=== PATIENT | female | born 1945 | race Caucasian/White ===

== ENCOUNTER 2018-06-20 01:10 | Inpatient (IN) | payer OTHER ==
[~2018-06-20] VITALS: Ht 157.5 cm; Wt 62.1 kg
--- NOTE | 2018-06-20 01:17 | NUR ---
PT TAKEN TO BED 7
[2018-06-20 01:27] VITALS: BP 137/72
--- NOTE | 2018-06-20 01:33 | NUR ---
PT TO ED WITH C/O HEMATURIA AND URINARY URGENCY. PT DENIES ANY OTHER SMYPTOMS. DENIES N/V. REPORTS BEING SEEN IN URGENT CARE GIVEN RX FOR CIPRO. PT PLACED INTO BED, PENDING MD MOCK. PMH--DENIES RX--DENIES
--- NOTE | 2018-06-20 01:40 | NUR ---
# 14 FR Urinary catheter inserted utilizing sterile technique. Immediate return of 40 ml RED urine noted. Urine sample collected and sent to lab. Pt tolerated procedure WELL.
[2018-06-20 02:18] LABS: APPEARANCE,URINE TURBID (CLEAR); BILIRUBIN,URINE NEGATIVE (NEGATIVE); BLOOD, URINE 3+ (NEGATIVE); COLOR,URINE RED (YELLOW); LEUKOCYTE ESTERASE ,URINE NEGATIVE (NEGATIVE); NITRITE, URINE NEGATIVE (NEGATIVE); PH,URINE 6.5 (5.0-9.0); UGLUCOSE NEGATIVE (NEGATIVE)
[2018-06-20 02:20] LABS: RBC,URINE TOO NUMEROUS TO COUN /HPF (0-5); WBC,URINE 0-5 (RARE) /HPF (0-5)
[2018-06-20 03:23] LABS: BASOPHILS % (AUTO) 0.4 % (0.0-2.0); EOSINOPHILS # (AUTO) 0.1 K/uL (0-0.4); EOSINOPHILS % (AUTO) 0.8 % (0.0-4.0); HEMATOCRIT 40.6 % (36-48); HEMOGLOBIN 13.3 g/dL (12.0-16.0); LYMPHOCYTES # (AUTO) 2.4 K/uL (2.5-16.5); LYMPHOCYTES % (AUTO) 21.7 % (20.5-51.1); MEAN CORPUSCULAR HEMOGLOBIN 28 pg (27-31); MEAN CORPUSCULAR HGB CONC 33 g/dL (33-37); MEAN CORPUSCULAR VOLUME 84.9 fL (80-94); MONOCYTES # (AUTO) 0.8 K/uL (0.8-1.0); MONOCYTES % (AUTO) 6.7 % (1.7-9.3); NEUTROPHILS # (AUTO) 7.9 K/uL (1.8-7.7); NEUTROPHILS % (AUTO) 70.4 % (42.2-75.2); PLATELET COUNT (AUTO) 206 K/uL (140-450); RED BLOOD CELL COUNT(AUTO) 4.78 MIL/uL (4.20-5.40); RED CELL DISTRIBUTION WIDTH 14.6 % (11.6-13.7); WHITE BLOOD COUNT (AUTO) 11.3 K/uL (4.8-10.8)
--- NOTE | 2018-06-20 03:26 | NUR ---
Dr. Morrison evaluating patient at bedside.
[2018-06-20 03:32] LABS: ANION GAP 9.8 (8-16); CARBON DIOXIDE 25.8 mmol/L (21-32); CREATININE 0.7 mg/dL (0.6-1.3); POTASSIUM 3.6 mmol/L (3.5-5.1)
[2018-06-20 03:38] LABS: ALBUMIN 3.4 g/dL (3.4-5.0); TOTAL BILIRUBIN 0.4 mg/dL (0.0-1.0)
[2018-06-20] MEDS ORDERED: NACL 0.9% 1,000 ML IV ONE (04:20)
[2018-06-20] MEDS ORDERED: NACL 0.9% 1,000 ML IV SCH (04:25)
[2018-06-20] MEDS ORDERED: DOCUSATE SODIUM 100 MG GELCAP PO PRN (04:25)
[2018-06-20] MEDS ORDERED: ONDANSETRON 4 MG/2 ML VIAL IM/IVP PRN (04:25)
[2018-06-20] MEDS ORDERED: ACETAMINOPHEN 325 MG TAB PO PRN (04:25)
[2018-06-20] MEDS ORDERED: MORPHINE SULFATE 2 MG/ML SYR IVP PRN (04:25)
--- NOTE | 2018-06-20 04:40 | NUR ---
Patient will be admitted to care of DR BRAXTON. Admited to MED/SURG. Will go to room 111-A. Belongings list completed. Report to MONCHO MCKEON.
[2018-06-20 04:45] VITALS: BP 140/75
--- NOTE | 2018-06-20 04:45 | NUR ---
REPORT RECEIVED FROM ED NURSE AT BEDSIDE. PT IN STABLE CONDITION. AAOX4. INTRODUCED SELF TO PT. BOARD UPDATED. NO COMPLAINTS OF PAIN. NO SOB. AFEBRILE. IV SITE L AC 18G RUNNING D5 1/2NS@60ML/HR PATENT AND INTACT. SKIN WARM, DRY, AND INTACT WITH NO OPEN WOUNDS. BED LOCKED IN LOW POSITION. CALL BRISENO WITHIN REACH. SAFETY PRECAUTIONS IN PLACE.
[2018-06-20 04:57] LABS: CHOL/HDL RATIO 3.8 (1-4.5); MAGNESIUM 2.2 mg/dL (1.8-2.4); PHOSPHORUS 4.2 mg/dL (2.5-4.9); THYROID STIMULATING HORMONE 4.2 uIU/mL (0.34-3.74)
[2018-06-20 05:00] LABS: BARBITURATE, URINE NEG. ng/ml (NEG <=200); BENZODIAZEPINE, URINE NEG. ng/mL (NEG <=200); CANNABINOID, URINE NEG. ng/mL (NEG <=50); COCAINE, URINE NEG. ng/mL (NEG <=300); OPIATE, URINE NEG. ng/mL (NEG <=2000); PHENCYCLIDINE SCREEN,URINE NEG. ng/mL (NEG <=25)
[2018-06-20] MEDS ORDERED: DEXT 5% / NACL 0.45% 1,000 ML IV SCH (05:20)
[2018-06-20] MEDS ORDERED: cefTRIAXone 1,000 MG VIAL ONE (05:41)
--- NOTE | 2018-06-20 05:43 | NUR ---
CHAO BROOKE AND RUNNING. PT TOLERATING WELL.
--- NOTE | 2018-06-20 07:30 | NUR ---
REPORT GIVEN TO AM NURSE AT BEDSIDE. PT IN STABLE CONDITION.
--- NOTE | 2018-06-20 07:31 | NUR ---
RECEIVED BEDSIDE REPORT FROM MONCHO MCKEON. PT STABLE, SLEEPING, BUT EASILY AROUSABLE. NO SIGNS OF DISTRESS NOTED. NO REDNESS, SWELLING, OR INFLAMMATION NOTED ON IV SITE. BED IN LOW POSITION. CALL LIGHT WITHIN REACH. SAFETY MEASURES IN PLACE. PLAN OF CARE REVIEWED.
[2018-06-20 08:00] VITALS: BP 117/61
--- NOTE | 2018-06-20 08:18 | NUR ---
PATIENT HAS BEEN SCREENED AND CATEGORIZED HIGH NUTRITION RISK. PATIENT WILL BE SEEN WITHIN 1-2 DAYS OF ADMISSION. 06/20/18-06/21/[address]
[2018-06-20] MEDS: LACTOBACILLUS RHAMNOSUS GG 1 EACH CAP PO SCH (09:56)
[2018-06-20] MEDS: NACL 0.9% 1,000 ML IV SCH (09:56)
--- NOTE | 2018-06-20 09:59 | NUR ---
ADMINISTERED SCHEDULED MEDICATIONS. PT TOLERATED WELL. NO OTHER NEEDS AT THIS TIME.
--- NOTE | 2018-06-20 11:15 | NUR ---
PT STABLE, AWAKE, AND ALERT. AMBULATES TO THE BATHROOM. NO OTHER NEEDS AT THIS TIME.
--- NOTE | 2018-06-20 13:04 | NUR ---
INSERTED 3 WAY WARNER CATHETER WITH BLADDER IRRIGATION PER MD ORDER.
[2018-06-20 16:00] VITALS: BP 111/51
--- NOTE | 2018-06-20 16:00 | NUR ---
PT TOLERATING 3-WAY WARNER CATHETER WELL. NO OTHER NEEDS AT THIS TIME. FAMILY AT THE BEDSIDE.
--- NOTE | 2018-06-20 18:00 | NUR ---
TOTAL INPUT FROM BLADDER IRRIGATION IS 18,000 ML OF SODIUM CHLORIDE, TOTAL OUTPUT IS 16,525. PINK DRAINAGE FROM WARNER CATHETER LAST NOTED.
--- NOTE | 2018-06-20 19:15 | NUR ---
ENDORSED PT TO MONCHO MCKEON FOR CONTINUITY OF CARE. PT STABLE, AWAKE, AND ALERT.
--- NOTE | 2018-06-20 19:16 | NUR ---
REPORT RECEIVED FROM AM NURSE AT BEDSIDE. PT IN STABLE CONDITION. AAOX4. INTRODUCED SELF TO PT. BOARD UPDATED. NO COMPLAINTS OF PAIN. NO SOB. AFEBRILE. IV SITE R AC 18 RUNNING NS@60ML/HR PATENT AND INTACT. SKIN WARM, DRY, AND INTACT WITH NO OPEN WOUNDS. BED LOCKED IN LOW POSITION. CALL BRISENO WITHIN REACH. SAFETY PRECAUTIONS IN PLACE.
[2018-06-20] MEDS: ATORVASTATIN 20 MG TAB PO SCH (20:33)
--- NOTE | 2018-06-20 20:33 | NUR ---
LIPITOR GIVEN PO. PT TOLERATED WELL.
--- NOTE | 2018-06-20 21:35 | NUR ---
PATIENT HAS NS IRRIGATING HER BLADDER THROUGH A TRIPLE LUMEN WARNER. HAS COMPLAINTS OF PAIN WHEN THERE IS A BLOCKAGE. IRRIGATED BLADDER WITH 10ML WHEN BLOCKAGE OCCURRED 6 TIMES TO ALLOW NORMAL FLOW OF THE WARNER.
--- NOTE | 2018-06-20 23:15 | NUR ---
MD TO SEE PATIENT. IRRIGATION RUNNING CLEAR PINK. MD ORDERED TO TURN OFF IRRIGATION.
[2018-06-21] VITALS: BP 98/55
--- NOTE | 2018-06-21 00:30 | NUR ---
WARNER DRAINING DARK RED URINE. NOTIFIED. ORDERED TO START BLADDER IRRIGATION AGAIN.
[2018-06-21] MEDS: NACL 0.9% 1,000 ML IV SCH ×2 (01:57→18:31)
--- NOTE | 2018-06-21 02:10 | NUR ---
PT HAS NO COMPLAINTS OF PAIN DUE TO BLADDER DISTENTION. WARNER DRAINING PINK TINGED URINE. WILL CONTINUE TO MONITOR.
--- NOTE | 2018-06-21 03:35 | NUR ---
PT ATTEMPTING TO SLEEP BUT HAS PAIN WHEN BLADDER BECOMES EXTENDED DUE TO IRRIGATION. NO MAJOR S/S OF DISTRESS NOTED. WILL CONTINUE TO MONITOR.
--- NOTE | 2018-06-21 04:15 | NUR ---
CALLED MINESWEEPING OFFICER FOR IRRIGATION BAG. CLERICAL AIDE SAID SHE WAS BUSY IN ICU AND TELL CHARGE TO GET IT.
--- NOTE | 2018-06-21 04:20 | NUR ---
IRRIGATION BAG RECEIVED FROM CHARGE NURSE.
--- NOTE | 2018-06-21 05:04 | NUR ---
CHAO BROOKE AND RUNNING. PT TOLERATING WELL.
[2018-06-21 06:19] LABS: CARBON DIOXIDE 24.5 mmol/L (21-32); CREATININE 0.7 mg/dL (0.6-1.3); POTASSIUM 3.5 mmol/L (3.5-5.1)
[2018-06-21 06:30] LABS: BASOPHILS % (AUTO) 0.3 % (0.0-2.0); EOSINOPHILS # (AUTO) 0.3 K/uL (0-0.4); EOSINOPHILS % (AUTO) 3.7 % (0.0-4.0); HEMATOCRIT 35.7 % (36-48); HEMOGLOBIN 11.6 g/dL (12.0-16.0); LYMPHOCYTES # (AUTO) 2.4 K/uL (2.5-16.5); MEAN CORPUSCULAR HEMOGLOBIN 28 pg (27-31); MEAN CORPUSCULAR HGB CONC 32 g/dL (33-37); MEAN CORPUSCULAR VOLUME 86.5 fL (80-94); MONOCYTES # (AUTO) 0.5 K/uL (0.8-1.0); MONOCYTES % (AUTO) 6.4 % (1.7-9.3); NEUTROPHILS # (AUTO) 4.2 K/uL (1.8-7.7); NEUTROPHILS % (AUTO) 56.6 % (42.2-75.2); PLATELET COUNT (AUTO) 168 K/uL (140-450); RED BLOOD CELL COUNT(AUTO) 4.13 MIL/uL (4.20-5.40); RED CELL DISTRIBUTION WIDTH 14.7 % (11.6-13.7); WHITE BLOOD COUNT (AUTO) 7.3 K/uL (4.8-10.8)
--- NOTE | 2018-06-21 07:05 | NUR ---
REPORT GIVEN TO AM NURSE AT BEDSIDE. PT IN STABLE CONDITION.
--- NOTE | 2018-06-21 07:06 | NUR ---
RECEIVED BEDSIDE REPORT FROM MONCHO MCKEON. PT STABLE, AWAKE, AND ALERT. NO SIGNS OF DISTRESS NOTED. DENIES PAIN. NO REDNESS, SWELLING, OR INFLAMMATION NOTED ON IV SITE. 3-WAY CATHETER PATENT AND DRAINING, APRIL PINK DRAINAGE NOTED IN WARNER BAG. BED IN LOW POSITION. CALL LIGHT WITHIN REACH. SAFETY MEASURES IN PLACE. PLAN OF CARE REVIEWED.
[2018-06-21 08:00] VITALS: BP 145/58
[2018-06-21] MEDS: LACTOBACILLUS RHAMNOSUS GG 1 EACH CAP PO SCH (08:50)
--- NOTE | 2018-06-21 08:51 | NUR ---
ADMINISTERED SCHEDULED MEDICATIONS. PT TOLERATED WELL. NO OTHER NEEDS AT THIS TIME.
--- NOTE | 2018-06-21 11:10 | NUR ---
ESPINAL RED OUTPUT IN 3 WAY WARNER CATHETER BAG WITH IRRIGATION . WILL CONTINUE TO MONITOR. PT DENIES PAIN OR PRESSURE.
--- NOTE | 2018-06-21 13:29 | NUR ---
06/21/18 RD INITIAL ASSESSMENT COMPLETED PLEASE REFER TO NUTRITION ASSESSMENT UNDER CARE ACTIVITY FOR ESTIMATED NUTRITIONAL NEEDS. 1. CONTINUE REGULAR DIET TOLERATED 2. RD REVIEWED HEART HEALTHY DIET 3. RD TO FOLLOW-UP 5-7 DAYS, LOW RISK GREG FALCON RD
--- NOTE | 2018-06-21 14:30 | NUR ---
PT HAS NO COMPLAINTS OF PAIN DUE TO BLADDER IRRIGATION. PT TOLERATING WARNER CATHETER WELL. NO OTHER NEEDS AT THIS TIME. WILL CONTINUE TO MONITOR.
[2018-06-21 16:00] VITALS: BP 115/50
--- NOTE | 2018-06-21 16:30 | NUR ---
VITAL SIGNS TAKEN. PT STABLE, AWAKE, AND ALERT. DENIES PAIN.
--- NOTE | 2018-06-21 18:00 | NUR ---
LIGHT PINK DRAINAGE NOTED IN [address] WAY WARNER CATHETER WITH IRRIGATION. PT DENIES PAIN.
--- NOTE | 2018-06-21 19:15 | NUR ---
RECEIVED ENDORSEMENT FORM ASHLEY ROSEN RN DAYSHIFT NURSE AT BEDSIDE FOR CONTINUITY OF CARE, PT IN STABLE CONDITION.
--- NOTE | 2018-06-21 19:15 | NUR ---
ENDORSED PT TO MONCHO FRYE FOR CONTINUITY OF CARE. PT STABLE, AWAKE, AND ALERT.
[2018-06-21 20:00] VITALS: BP 136/81
--- NOTE | 2018-06-21 20:00 | NUR ---
PT IN BED WITH HOB UP 45%. PT IS AOX4. SHE HAS IV SITE ON LAC 18 GAUGE RUNNING NORMAL SALINE AT 60MLS/HR. PT ALSO HAS 3 WAY CATHETER ON CONTINUOUS IRRIGATION WITH N/S. PT HAD FULL CATHETER AND 600 MLS OF RED URINE EMPTIED. PT SAID DHE WAS FEELING SOME PRESSURE AND ASKED PRIMARY NURSE TO FLUSH CATHETER. CATHETER FLUSHED WITH 2 N/S SYRINGES AND A BLOOD CLOT CAME OUT. WILL CONTINUE TO MONITOR THE 3 WAY IRRIGATION, COLOR OF THE URINE AND MONITOR FOR BLOOD CLOTS. PT SAID SHE HAD TOLERABLE PAIN AND WAS AFRAID TO TAKE ANY PAIN MEDICATIONS. WILL CONTINUE TO MONITOR FOR PAIN.
--- NOTE | 2018-06-21 21:00 | NUR ---
PT IN BED AND HAS BEEN COMPLAINING OF PRESSURE IN THE LOWER ABDOMEN. ABDOMEN IS FIRM AND DISTENDED BUT NOT RIDGED. 3 WAY WARNER WAS IRRIGATED X2 AND A NEW BAG OF N/S HUNG. 1100 OF RED URINE WAS DRAINED. PT SAID THAT SHE FEELS BETTER AFTER THE IRRIGATION.
[2018-06-21] MEDS: ATORVASTATIN 20 MG TAB PO SCH (21:04)
--- NOTE | 2018-06-21 22:00 | NUR ---
SPUTUM CULTURE OBTAINED AND SENT TO LAB.
--- NOTE | 2018-06-21 23:30 | NUR ---
PT IN BED RESTING NO S/S OF PAIN OR DISTRESS NOTED, BUT PT IS CONFUSED ASKING HOW LONG HAS SHE BEEN HERE AND WHEN ASKED IF SHE KNEW WHICH HOSPITAL SHE WAS AT SHE SAID I KNOW IM IN A HOSPITAL. SHE THEN ASKED HERSELF IF SHE COULD REMEMBER WHERE SHE LIVED. SHE DID SAY ON [address]. PT THEN WONDERING WHEN SHE HAD RECEIVED HER BLANKET FROM HOME. SHE WANDERED IF EVERYTHING THAT IS GOING ON IS A DREAM. WILL NOTIFY RESIDENT MD CONCERNING RECENT CONFUSION. 1600 OF RED URINE DRAINED. IRRIGATION IN PROGRESS. ABDOMEN IS SOFT. IV SITE INTACT AND RUNNING N/S AT 60MLS/HR. V/S FOLLOWS T 97.9 P 96 R 20 B/P 119/58 02 93% ON R/A.
--- NOTE | 2018-06-22 00:30 | NUR ---
DR. STOKES RESIDENT MD MADE AWARE OF PT RECENT CONFUSION. MD SAID THAT SHE WAS IN THE ICU BUT WILL COME AND INTERVIEW PT AT BEDSIDE. PT MADE AWARE. PT IS BED NO S/S OF PAIN OR DISTRESS NOTED.
[2018-06-22] MEDS: HYDROcodone/APAP 5/325 MG 1 TAB TAB PO PRN ×2 (02:57→22:17)
--- NOTE | 2018-06-22 03:02 | NUR ---
PT COMPLAINING OF PAIN AND PRESSURE, GIVEN 1 TAB NORCO FOR MODERATE PAIN. WARNER CATHETER FLUSHED AND IRRIGATION OF BLADDER CONTINUES.
--- NOTE | 2018-06-22 03:30 | NUR ---
RESIDENT MD DR. STOKES AT BEDSIDE EVALUATING PT. SHE FOUND PT TO BE ALERT AND ORIENTED. NO NEW ORDERS NOTED. WILL CONTINUE TO MONITOR PT FOR CHANGES IN ORIENTATION.
--- NOTE | 2018-06-22 05:34 | NUR ---
PT IN BED 3 WAY WARNER IRRIGATED DUE TO C/O OF PRESSURE ON LOWER ABDOMEN. SMALL BLOOD CLOT NOTED WHEN FLUSHING WARNER CATHETER. ANOTHER 1200MLS OF BLOODY URINE DRAINED FROM CATHETER. ROCEPHIN HUNG ORDERED.
[2018-06-22 07:21] LABS: BASOPHILS % (AUTO) 0.4 % (0.0-2.0); EOSINOPHILS # (AUTO) 0.2 K/uL (0-0.4); EOSINOPHILS % (AUTO) 2.5 % (0.0-4.0); HEMATOCRIT 35.3 % (36-48); HEMOGLOBIN 11.5 g/dL (12.0-16.0); LYMPHOCYTES # (AUTO) 2.6 K/uL (2.5-16.5); LYMPHOCYTES % (AUTO) 34.1 % (20.5-51.1); MEAN CORPUSCULAR HEMOGLOBIN 28 pg (27-31); MEAN CORPUSCULAR HGB CONC 33 g/dL (33-37); MEAN CORPUSCULAR VOLUME 86.3 fL (80-94); MONOCYTES # (AUTO) 0.4 K/uL (0.8-1.0); MONOCYTES % (AUTO) 5.5 % (1.7-9.3); NEUTROPHILS # (AUTO) 4.3 K/uL (1.8-7.7); NEUTROPHILS % (AUTO) 57.5 % (42.2-75.2); PLATELET COUNT (AUTO) 171 K/uL (140-450); RED BLOOD CELL COUNT(AUTO) 4.09 MIL/uL (4.20-5.40); RED CELL DISTRIBUTION WIDTH 14.6 % (11.6-13.7); WHITE BLOOD COUNT (AUTO) 7.6 K/uL (4.8-10.8)
--- NOTE | 2018-06-22 07:25 | NUR ---
REPORT GIVEN AT BEDSIDE FOR CONTINUITY OF CARE, PT IN SABLE CONDITION.
--- NOTE | 2018-06-22 07:30 | NUR ---
RECEIVED BEDSIDE REPORT FROM DIETARY SUPERVISOR RN. PT IS AAOX4. NO SIGNS OF DISTRESS NOTED ON ROOM AIR. PT DENIES PAIN OR ANY DISCOMFORT. IV NOTED TO LEFT AC, PATENT AND INTACT. 3-WAY WARNER CATHETER PATENT AND DRAINING ESPINAL COLOR OUTPUT NOTED IN WARNER BAG. BED IN LOWEST POSITION. CALL LIGHT WITHIN REACH. SAFETY MEASURES IN PLACE. PLAN OF CARE REVIEWED. PT VERBALIZED UNDERSTANDING. WILL CONTINUE TO MONITOR.
[2018-06-22 07:40] LABS: ANION GAP 12.1 (8-16); CARBON DIOXIDE 25.1 mmol/L (21-32); CREATININE 0.7 mg/dL (0.6-1.3); POTASSIUM 3.2 mmol/L (3.5-5.1)
--- NOTE | 2018-06-22 07:40 | NUR ---
NEW IRRIGATION 3L BAG WAS HUNG.
[2018-06-22 07:44] LABS: MAGNESIUM 1.7 mg/dL (1.8-2.4); PHOSPHORUS 4.3 mg/dL (2.5-4.9)
[2018-06-22 08:00] VITALS: BP 101/62
[2018-06-22] MEDS: LACTOBACILLUS RHAMNOSUS GG 1 EACH CAP PO SCH (08:41)
[2018-06-22] MEDS: NACL 0.9% 1,000 ML IV SCH (11:52)
[2018-06-22] MEDS ORDERED: MAG SULF 2000 MG/WATER PREMIX 50 ML IV SCH (12:30)
--- NOTE | 2018-06-22 12:30 | NUR ---
PT EATING LUNCH INDEPENDENTLY, NO S/S OF DISTRESS NOTED. PT HAS NO C/O.
--- NOTE | 2018-06-22 13:15 | NUR ---
NEW IRRIGATION BAG 3L WAS HUNG, FLOWING BY GRAVITY.
[2018-06-22 16:00] VITALS: BP 104/59
[2018-06-22] MEDS ORDERED: POTASSIUM CHLORIDE 40 MEQ, LIDOCAINE 1% 25 MG in NACL 0.9% 250 ML IV SCH (16:00)
--- NOTE | 2018-06-22 16:40 | NUR ---
NEW IRRIGATION BAG 3L WAS HUNG, FLOWING BY GRAVITY.
--- NOTE | 2018-06-22 18:10 | NUR ---
PT C/O FELT A LITTLE PRESSURE IN THE BLADDER. FLUSHED WITH WARNER WITH SYRINGE WITH 40ML STERIL H2O, NO RESISTANCE. DRAINING OK. PT VERBALIZED FELT BETTER. NO MORE FLUSH NEEDED.
--- NOTE | 2018-06-22 18:30 | NUR ---
MADE DR STOKES AWARE THAT PT STILL HAS HEMATURIA. DR STOKES WENT TO TALK TO THE PT.
--- NOTE | 2018-06-22 19:10 | NUR ---
ENDORSED PT TO DEALER CARD ROOM RN, PT IN STABLE CONDITION.
[2018-06-22] MEDS: ATORVASTATIN 20 MG TAB PO SCH (20:26)
--- NOTE | 2018-06-22 20:29 | NUR ---
DUE ATORVASTATIN GIVEN, WARNER BAG DRAINING DARK RED/CHEERY COLOR, STARTED NEW BAG CONTINUOUS IRRIGATION, NOTIFIED DR STOKES THAT THIS IS THE LAST BAG WE HAVE, ASKED IF CAN USE OTHER NS BAG, DEXTROSE, OR NORMAL WATER. DR STOKES STATED IT HAS TO BE 0.9 NS IRRIGATION BAG, TOLD TO CALL [facility] TO ASK THEM TO BRING A NEW SUPPLIES OF IRRIGATION BAGS. NOTIFIED CHARGE NURSE GUY. AUTOMATIC BEADING LATHE OPERATOR MAO AWARE. PATIENT STATED ALLERGIES TO PENICILLINS, PUT NEW ALLERGEN IN, IZABEL CALLED FROM PHARMACY STATED OKAY TO GIVEN ROCEPHIN SINCE PATIENT HAS ALREADY RECEIVED THIS MEDICATION AND HAS NOT HAD A REACTION. WILL CONTINUE TO MONITOR.
--- NOTE | 2018-06-22 20:38 | NUR ---
NOTIFIED DR STOKES ABOUT ALLERGY TO PENICILLINS, STATED OKAY TO GIVE ROCEPHIN.
--- NOTE | 2018-06-22 21:45 | NUR ---
IRRIGATED WARNER WITH 60 ML NS, SLIGHT RESISTANCE FELT, BLOOD CLOTS SEEN DRAINING.
--- NOTE | 2018-06-22 22:17 | NUR ---
PATIENT C/O PAIN GAVE NORCO.
--- NOTE | 2018-06-22 22:20 | NUR ---
PATIENT STATED THE PAIN IS WORSE THAN BEFORE WILL NOTIFY DR STOKES OF WORSENING PAIN.
--- NOTE | 2018-06-22 22:30 | NUR ---
IRRIGATED WARNER WITH 60 ML NS. PATIENT C/O PAIN, SCREAMING "STOP IT HURTS" WHEN IRRIGATING. NOTIFIED DR STOKES. ORDERS TO GIVE NORCO, NOTIFIED ALREADY GAVE NORCO. WILL CONTINUE TO MONITOR.
--- NOTE | 2018-06-22 23:00 | NUR ---
STARTED IRRIGATION BAG, URINE DRAINING LIGHT PINK URINE. DR KIKE BABB.
[2018-06-23] VITALS: BP 99/52
--- NOTE | 2018-06-23 | NUR ---
V/S TAKEN, BP 99/52, STARTED NEW IRRIGATION BAG, URINE PINK IN COLOR NO MORE BLOOD CLOTS SEEN.
--- NOTE | 2018-06-23 02:05 | NUR ---
URINE OUTPUT RED 1500 CC. IRRIGATION BAG INFUSING.
[2018-06-23] MEDS: NACL 0.9% 1,000 ML IV SCH ×2 (02:57→17:47)
--- NOTE | 2018-06-23 02:57 | NUR ---
NS STILL INFUSING WILL START NEW BAG NS WHEN COMPLETED
[2018-06-23] MEDS: HYDROcodone/APAP 5/325 MG 1 TAB TAB PO PRN ×4 (03:39→19:54)
--- NOTE | 2018-06-23 03:44 | NUR ---
PATIENT C/O PAIN GAVE NORCO. URINE OUTPUT IS LIGHT PINK.
[2018-06-23 04:06] LABS: T4 (THYROXINE) 7.9 ug/dL (4.5-12.0)
--- NOTE | 2018-06-23 06:44 | NUR ---
PATIENT HAD 7 BAGS 3 L NS ON MY SHIFT. TOTAL 21,000 INPUT.
--- NOTE | 2018-06-23 07:38 | NUR ---
ENDORSED PATIENT TO DAY SHIFT NURSE PATIENT STABLE.
--- NOTE | 2018-06-23 07:39 | NUR ---
RECEIVED REPORT FROM FACE PAINTER NURSE FOR CONTINUITY OF CARE. PT IN STABLE CONDITION. RESPIRATIONS EVEN AND UNLABORED. IV INTACT AND PATENT. BLADDER IRRIGATION PATENT. SAFETY MEASURES IN PLACE. CALL LIGHT AT BEDSIDE. BED IN LOW POSITION. WILL CONTINUE TO MONITOR.
[2018-06-23 08:00] VITALS: BP 108/46
[2018-06-23 08:23] LABS: BASOPHILS % (AUTO) 0.1 % (0.0-2.0); EOSINOPHILS # (AUTO) 0.3 K/uL (0-0.4); EOSINOPHILS % (AUTO) 5.2 % (0.0-4.0); HEMATOCRIT 37.2 % (36-48); LYMPHOCYTES % (AUTO) 29.7 % (20.5-51.1); MEAN CORPUSCULAR HEMOGLOBIN 28 pg (27-31); MEAN CORPUSCULAR HGB CONC 32 g/dL (33-37); MEAN CORPUSCULAR VOLUME 86.8 fL (80-94); MONOCYTES # (AUTO) 0.3 K/uL (0.8-1.0); PLATELET COUNT (AUTO) 183 K/uL (140-450); RED BLOOD CELL COUNT(AUTO) 4.29 MIL/uL (4.20-5.40); RED CELL DISTRIBUTION WIDTH 14.8 % (11.6-13.7); WHITE BLOOD COUNT (AUTO) 6.6 K/uL (4.8-10.8)
[2018-06-23 08:34] LABS: ANION GAP 8.9 (8-16); CREATININE 0.7 mg/dL (0.6-1.3); MAGNESIUM 2.2 mg/dL (1.8-2.4); PHOSPHORUS 3.5 mg/dL (2.5-4.9); POTASSIUM 3.9 mmol/L (3.5-5.1)
[2018-06-23] MEDS: LACTOBACILLUS RHAMNOSUS GG 1 EACH CAP PO SCH (08:41)
--- NOTE | 2018-06-23 10:18 | NUR ---
PT C/O PRESSURE DURING CONTINUOUS IRRIGATION. FLUSHED TUBING PT TOLERATING WELL.
--- NOTE | 2018-06-23 11:06 | NUR ---
BALLOON POPPED ON WARNER [address] IN[address]. SCHMITZ, WILL REMOVE AND REPLACE WITH NEW 3 WAY VALVE. PT IN STABLE CONDITION. WILL CONTINUE TO MONITOR.
--- NOTE | 2018-06-23 12:00 | NUR ---
Mold Repair Technician Notes: I faxed patient's Clinical information and MD order to [facility]. at .
--- NOTE | 2018-06-23 12:00 | NUR ---
INSERTED NEW 3WAY IRRIGATION WARNER AT THIS TIME. PT TOLERATED WELL. WILL CONTINUE TO MONITOR. BED IN LOW POSITION. CALL LIGHT AT BEDSIDE.
--- NOTE | 2018-06-23 13:30 | NUR ---
Bridge Repairer Notes: I Called [facility] to request Patient authorization for Home Health for [facility] at ([phone]. I Spoke to Angelica Maki who stated that she was the weekend spring encaser, I provided Patient information and requested authorization for H.H. Per Angelica checking Patient information and insurance she realized that Patient is a [facility] patient under the [facility] plan. Per Angelica CM she does not work on that plan and reported that the specific plan does not have weekend staff. Therefore; [facility] case manger will need to follow on getting H. H authorization with [facility] School Fundraising Director. Angelica provided number . I thanked her and I ended the call. These job specification writer made cinder block makerMOCNHO crowley.
--- NOTE | 2018-06-23 14:20 | NUR ---
PT C/O PRESSURE DURING CONTINUOUS IRRIGATION. FLUSHED TUBING PT TOLERATING WELL
--- NOTE | 2018-06-23 14:45 | NUR ---
PT C/O PRESSURE DURING CONTINUOUS IRRIGATION. FLUSHED TUBING PT TOLERATING WELL
[2018-06-23 16:00] VITALS: BP 111/55
--- NOTE | 2018-06-23 16:10 | NUR ---
PT C/O PRESSURE DURING CONTINUOUS IRRIGATION. FLUSHED TUBING PT TOLERATING WELL
--- NOTE | 2018-06-23 17:01 | NUR ---
Stable Cleaner Notes: I received a call back from [facility] Health Provider IncJuan Mishra from Admissions at . confirming that she has got the faxed information sended by these production underwriter earlier. Per [place] services can be provided and patient will be accepted when INS. Authorization is provided. I thanked her for her information and let her know that Monday [facility] will follow up with H.H Authorization approval, Danica thanked me and i ended the call.
--- NOTE | 2018-06-23 17:15 | NUR ---
Repair Tech Notes: Mary from admissions at [facility] call back stating that she take a second check on Patient's Insurance and realized that [facility] does not have a contract with [facility]. Therefore; caseworker protective services from [facility] on Monday will have to get contracted provider list, summit referral and get authorization for Patient home health. I thanked Mary again for information and ended the call. Information will be endorsed by these engineering writer to Monday CM/to follow up.
--- NOTE | 2018-06-23 17:25 | NUR ---
PT C/O PRESSURE DURING CONTINUOUS IRRIGATION. FLUSHED TUBING PT TOLERATING WELL
[2018-06-23] MEDS: OXYBUTYNIN 5 MG TAB PO SCH (18:59)
--- NOTE | 2018-06-23 19:30 | NUR ---
ENDORSED TO RESOURCE TEACHER NURSE FOR CONTINUITY OF CARE. PT IN STABLE CONDITION.
--- NOTE | 2018-06-23 19:31 | NUR ---
RECD. RESTING IN BED, AWAKE, A/OX4. RESPIRATION EVEN AND UNLABORED. IV OF NS AT 60 ML/HR INFUSING, LEFT AC G18. CONTINUOUS BLADDER IRRIGATION ON GOING, F/C DRAINING SLIGHTLY REDDISH URINE. PLAN OF CARE FOR THE SHIFT DISCUSSED. VERBALIZED UNDERSTANDING. DENIES PAIN 0/10.
--- NOTE | 2018-06-23 20:00 | NUR ---
Patient's Plan of Care was discussed and reviewed with AUTO CLUTCH REBUILDER: BAKARI, WILL CONTINUE WITH CURRENT POC.
[2018-06-23] MEDS: ATORVASTATIN 20 MG TAB PO SCH (20:02)
--- NOTE | 2018-06-23 21:15 | NUR ---
STARTED NEW IV BAG FOR IRRIGATION.
[2018-06-24] VITALS: BP 101/46
[2018-06-24] MEDS: HYDROcodone/APAP 5/325 MG 1 TAB TAB PO PRN ×3 (00:55→08:46)
--- NOTE | 2018-06-24 04:00 | NUR ---
DRAINAGE FROM WARNER BAG LIGHT ESPINAL COLORED. NO CLOTS NOTED IN THE TUBING.
--- NOTE | 2018-06-24 06:00 | NUR ---
ABLE TO GIVE IRRIGATING FLUID 5,700 ML AND OUTPUT FROM WARNER BAG- 7,700 ML. STILL OUTPUT IS LIGHT ESPINAL COLORED. Addendum: 06/24/18 at 0735 by Bianca Mccall LVN CORRECTION: IRRIGATING FLUIDS GIVEN 6,500. OUTPUT FROM WARNER - 7,700 ML - TOTAL OUTPUT - 1200 ML.
--- NOTE | 2018-06-24 07:20 | NUR ---
ENDORSED TO AM SHIFT NURSE FOR CONTINUITY OF CARE.
--- NOTE | 2018-06-24 07:21 | NUR ---
RECEIVED REPORT FROM FLOOR REPRESENTATIVE NURSE. PT IN STABLE CONDITION. RESPIRATIONS EVEN AND UNLABORED. IV INTACT AND PATENT. CALL LIGHT AT BEDSIDE. BED IN LOW POSITION. WILL CONTINUE TO MONITOR.
[2018-06-24 08:00] VITALS: BP 108/53
[2018-06-24 08:02] LABS: BASOPHILS % (AUTO) 0.4 % (0.0-2.0); EOSINOPHILS # (AUTO) 0.4 K/uL (0-0.4); EOSINOPHILS % (AUTO) 6.7 % (0.0-4.0); HEMATOCRIT 33.8 % (36-48); LYMPHOCYTES # (AUTO) 2.1 K/uL (2.5-16.5); LYMPHOCYTES % (AUTO) 35.8 % (20.5-51.1); MEAN CORPUSCULAR HEMOGLOBIN 28 pg (27-31); MEAN CORPUSCULAR HGB CONC 33 g/dL (33-37); MONOCYTES # (AUTO) 0.3 K/uL (0.8-1.0); MONOCYTES % (AUTO) 5.3 % (1.7-9.3); NEUTROPHILS # (AUTO) 3.1 K/uL (1.8-7.7); NEUTROPHILS % (AUTO) 51.8 % (42.2-75.2); PLATELET COUNT (AUTO) 171 K/uL (140-450); RED BLOOD CELL COUNT(AUTO) 3.88 MIL/uL (4.20-5.40); RED CELL DISTRIBUTION WIDTH 14.6 % (11.6-13.7)
[2018-06-24 08:16] LABS: ANION GAP 7.5 (8-16); CARBON DIOXIDE 28.4 mmol/L (21-32); CREATININE 0.7 mg/dL (0.6-1.3); POTASSIUM 3.9 mmol/L (3.5-5.1)
[2018-06-24] MEDS: OXYBUTYNIN 5 MG TAB PO SCH ×3 (08:45→17:33)
[2018-06-24] MEDS: LACTOBACILLUS RHAMNOSUS GG 1 EACH CAP PO SCH (08:45)
--- NOTE | 2018-06-24 08:45 | NUR ---
WRANER CATHETER REMOVED AT THIS TIME PER ORDERS. PT TOLERATED WELL. WILL CONTINUE TO MONITOR.
--- NOTE | 2018-06-24 11:47 | NUR ---
ASSISTED PT TO RESTROOM TO URINATE. MINIMAL CLOTTING NOTED AT THIS TIME. STEADY GAIT. WILL CONTINUE TO MONITOR.
[2018-06-24] MEDS: NACL 0.9% 1,000 ML IV SCH (13:54)
--- NOTE | 2018-06-24 14:10 | NUR ---
ASSISTED PT TO RESTROOM. MINIMAL CLOTS NOTED AT THIS TIME. PT IN STABLE CONDITION. WILL CONTINUE TO MONITOR.
[2018-06-24 16:00] VITALS: BP 96/50
[2018-06-24] MEDS ORDERED: ACET-9527 PO (16:53)
--- NOTE | 2018-06-24 17:16 | NUR ---
PT STATED SHE WENT TO THE BATHROOM AND THERE WAS NOT CLOTS. PT IN STABLE CONDITION. WILL CONTINUE TO MONITOR.
--- NOTE | 2018-06-24 19:10 | NUR ---
GAVE DISCHARGE INSTRUCTIONS AND PRESCRIPTION FOR HOME PHARMACY, PT VERBALIZED UNDERSTANDING OF INSTRUCTIONS. IV REMOVED, LUMEN INTACT. ID BAND REMOVED. PT WHEELED TO LOBBY IN WHEELCHAIR WHERE FAMILY WAS WAITING WITH CAR. PT IN STABLE CONDITION.
--- NOTE | 2018-06-25 09:10 | NUR ---
CM NOTE RECEIVED ORDER FOR HOME HEALTH. FAXED ORDER FOR HH, H&P, DC SUMMARY TO [facility] [phone]. PER RIKKI ROMEO OF [facility] PH# [phone], SHE WILL SET UP PATIENT'S HOME HEALTH AND SHE IS AWARE THAT PATIENT WAS DISCHARGED ON 06/24/18.
--- NOTE | 2018-06-25 10:05 | NUR ---
CM NOTE ORDER FOR HOME HEALTH FOR WARNER CARE WAS CANCELLED BY DOCTOR. [facility] RIKKI BABB.
== END 2018-06-24 19:00 | disposition home health service (06) | DRG 698 ==
LOC: MED 01:10 → MTU 04:28
PROVIDERS: ADMIT General Practice; ATTEND General Practice
DX: N32.9 Bladder disorder, unspecified (principal); N17.0 Acute kidney failure with tubular necrosis; N39.0 Urinary tract infection, site not specified; R65.10 Systemic inflammatory response syndrome (SIRS) of non-infectious origin without acute organ dysfunction; R31.9 Hematuria, unspecified; E78.5 Hyperlipidemia, unspecified; E03.9 Hypothyroidism, unspecified; F17.210 Nicotine dependence, cigarettes, uncomplicated; E87.6 Hypokalemia; E83.42 Hypomagnesemia; K57.90 Diverticulosis of intestine, part unspecified, without perforation or abscess without bleeding; Z88.0 Allergy status to penicillin; Z90.49 Acquired absence of other specified parts of digestive tract; Z90.710 Acquired absence of both cervix and uterus
CPT/HCPCS: 36415; 71045; 80048; 80053; 80305; 81001; 82150; 83036; 83605; 83690; 83735; 83880; 84100; 84436; 84443; 84484; 85025; 85610; 85730; 87081; 87086; 99285; J0696; J2001; J3475; J3480; J7030; J7060; Q0092

== ENCOUNTER 2024-01-13 16:49 | Inpatient (IN) | payer MEDICARE, OTHER ==
[~2024-01-13] VITALS: Ht 157.5 cm; Wt 66.7 kg
[~2024-01-13 16:49] MED LIST: ACET-9527 PO
[2024-01-13 17:03] VITALS: BP 116/72; PULSE 113; RESP 16; TEMP 97.8; O2SAT 99
[2024-01-13] MEDS ORDERED: ONDANSETRON 4 MG/2 ML VIAL ONE (18:19)
[2024-01-13] MEDS ORDERED: KETOROLAC 30 MG/ML VIAL ONE (18:19)
[2024-01-13] MEDS: NACL 0.9% 1,000 ML IV ONE (18:22)
[2024-01-13] MEDS: ONDANSETRON 4 MG/2 ML VIAL IVP ONE (18:23)
[2024-01-13] MEDS: KETOROLAC 30 MG/ML VIAL IVP ONE (18:27)
[2024-01-13 18:42] LABS: BASOPHILS # (AUTO) 0.1 K/uL (0.00-0.22); BASOPHILS % (AUTO) 0.6 % (0.0-2.0); EOSINOPHILS # (AUTO) 0.2 K/uL (0-0.4); EOSINOPHILS % (AUTO) 1.8 % (0.0-4.0); HEMATOCRIT 46.1 % (36-48); HEMOGLOBIN 15.1 g/dL (12.0-16.0); LYMPHOCYTES # (AUTO) 1.5 K/uL (2.5-16.5); LYMPHOCYTES % (AUTO) 11.8 % (20.5-51.1); MEAN CORPUSCULAR HEMOGLOBIN 29 pg (27-31); MEAN CORPUSCULAR HGB CONC 33 g/dL (33-37); MONOCYTES # (AUTO) 0.5 K/uL (0.8-1.0); MONOCYTES % (AUTO) 3.9 % (1.7-9.3); NEUTROPHILS # (AUTO) 10.7 K/uL (1.8-7.7); NEUTROPHILS % (AUTO) 81.9 % (42.2-75.2); PLATELET COUNT (AUTO) 183 K/uL (140-450); RED BLOOD CELL COUNT(AUTO) 5.29 MIL/uL (4.20-5.40); RED CELL DISTRIBUTION WIDTH 14.9 % (11.6-13.7)
[2024-01-13 19:16] LABS: ANION GAP 14.7 (8-16); CALCIUM 9.1 mg/dL (8.5-10.1); CARBON DIOXIDE 25.2 mmol/L (21-32); CHLORIDE 103 mmol/L (98-107); GLUCOSE 133 mg/dL (74-106); INR 0.97 (0.8-1.2); PARTIAL THROMBOPLASTIN TIME 25.2 secs (22-35.6); POTASSIUM 3.9 mmol/L (3.5-5.1); PROTHROMBIN TIME 10.2 secs (10.8-13.4); SODIUM SERUM 139 mmol/L (136-145); UREA NITROGEN, BLOOD 15 mg/dL (7-18)
[2024-01-13 19:21] LABS: ALANINE AMINOTRANSFERASE 20 U/L (12-78); ALBUMIN 3.6 g/dL (3.4-5.0); ALKALINE PHOSPHATASE 98 U/L (50-136); ASPARTATE AMINOTRANSFERASE 12 U/L (15-37); BILIRUBIN,DIRECT 0.1 mg/dL (0.0-0.3); TOTAL BILIRUBIN 0.5 mg/dL (0.0-1.0); TOTAL PROTEIN, SERUM 7.5 g/dL (6.4-8.2)
[2024-01-13] MEDS ORDERED: ATOR40TA PO (19:56)
[2024-01-13] MEDS ORDERED: VIT1TABL36 PO (19:56)
[2024-01-13 20:23] LABS: APPEARANCE,URINE CLEAR (CLEAR); BILIRUBIN,URINE 1+ (NEGATIVE); BLOOD, URINE 2+ (NEGATIVE); COLOR,URINE YELLOW (YELLOW); LEUKOCYTE ESTERASE ,URINE TRACE (NEGATIVE); NITRITE, URINE NEGATIVE (NEGATIVE); PROTEIN,URINE TRACE (NEGATIVE); UGLUCOSE NEGATIVE (NEGATIVE); UROBILINOGEN,URINE 0.2 EU/dL (0.2 - 1)
[2024-01-13 20:39] LABS: ICTOTEST NEGATIVE (NEGATIVE)
[2024-01-13 20:40] LABS: BACTERIA,URINE FEW /HPF (None Seen); MUCUS,URINE None Seen /LPF (None Seen); SQUAMOUS EPITHELIAL CELL,UR 0-3 (FEW) /LPF (0-3 (FEW)); TRICHOMONAS,URINE None Seen /HPF (None Seen); WBC,URINE 0-5 /HPF (0-5); WHITE BLOOD CELL CASTS,URINE None Seen /LPF (None Seen); YEAST,URINE None Seen /HPF (None Seen)
[2024-01-13] MEDS ORDERED: LORazepam 2 MG/ML VIAL IVP PRN (20:40)
[2024-01-13] MEDS ORDERED: ACETAMINOPHEN 325 MG TAB PO PRN (20:40)
[2024-01-13] MEDS: NACL 0.9% 1,000 ML IV SCH (21:36)
[2024-01-13 22:00] VITALS: PULSE 78; RESP 18; O2SAT 96
[2024-01-13 23:00] VITALS: BP 110/61; PULSE 78; RESP 18; TEMP 98.3; O2SAT 96
[2024-01-13] MEDS: MORPHINE SULFATE 2 MG/ML SYR IVP PRN (23:16)
[2024-01-14 04:00] VITALS: BP 112/66; PULSE 72; RESP 18; TEMP 98.2; O2SAT 96
[2024-01-14 06:49] LABS: BASOPHILS % (AUTO) 0.3 % (0.0-2.0); EOSINOPHILS # (AUTO) 0.4 K/uL (0-0.4); EOSINOPHILS % (AUTO) 4.4 % (0.0-4.0); HEMATOCRIT 38.5 % (36-48); HEMOGLOBIN 12.7 g/dL (12.0-16.0); LYMPHOCYTES # (AUTO) 2.4 K/uL (2.5-16.5); LYMPHOCYTES % (AUTO) 28.2 % (20.5-51.1); MEAN CORPUSCULAR HEMOGLOBIN 29 pg (27-31); MEAN CORPUSCULAR HGB CONC 33 g/dL (33-37); MEAN CORPUSCULAR VOLUME 87.6 fL (80-94); MONOCYTES # (AUTO) 0.7 K/uL (0.8-1.0); MONOCYTES % (AUTO) 7.7 % (1.7-9.3); NEUTROPHILS # (AUTO) 5.1 K/uL (1.8-7.7); NEUTROPHILS % (AUTO) 59.4 % (42.2-75.2); PLATELET COUNT (AUTO) 157 K/uL (140-450); RED CELL DISTRIBUTION WIDTH 14.8 % (11.6-13.7); WHITE BLOOD COUNT (AUTO) 8.6 K/uL (4.8-10.8)
[2024-01-14 06:56] LABS: ALANINE AMINOTRANSFERASE 17 U/L (12-78); ALBUMIN 2.7 g/dL (3.4-5.0); ALKALINE PHOSPHATASE 76 U/L (50-136); ANION GAP 14.8 (8-16); ASPARTATE AMINOTRANSFERASE 13 U/L (15-37); CALCIUM 7.7 mg/dL (8.5-10.1); CARBON DIOXIDE 20.2 mmol/L (21-32); CHLORIDE 109 mmol/L (98-107); CREATININE 0.9 mg/dL (0.6-1.3); GLUCOSE 105 mg/dL (74-106); MAGNESIUM 1.8 mg/dL (1.8-2.4); SODIUM SERUM 140 mmol/L (136-145); TOTAL BILIRUBIN 0.5 mg/dL (0.0-1.0); TOTAL PROTEIN, SERUM 5.7 g/dL (6.4-8.2); UREA NITROGEN, BLOOD 17 mg/dL (7-18)
[2024-01-14 08:00] VITALS: BP 112/64; PULSE 101; RESP 18; TEMP 97.1; O2SAT 97
[2024-01-14] MEDS: ENOXAPARIN 40 MG/0.4 ML SYR SUBQ SCH (08:40)
[2024-01-14 12:00] VITALS: BP 112/64; PULSE 101; RESP 18; TEMP 97.1; O2SAT 97
[2024-01-14 16:00] VITALS: BP 153/105; PULSE 90; RESP 18; TEMP 96.9; O2SAT 100
[2024-01-14 18:00] VITALS: BP 99/66; PULSE 90; RESP 18; TEMP 96.9; O2SAT 100
[2024-01-14 20:00] VITALS: PULSE 75; RESP 18; O2SAT 97
[2024-01-15 00:43] VITALS: BP 107/61; PULSE 86; RESP 18; TEMP 98.4; O2SAT 97
[2024-01-15 04:00] VITALS: BP 133/85; PULSE 84; RESP 18; TEMP 98.3; O2SAT 97
[2024-01-15] MEDS: ONDANSETRON 4 MG/2 ML VIAL IVP PRN (05:12)
[2024-01-15 08:00] VITALS: BP 114/67; PULSE 83; RESP 18; TEMP 96.9; O2SAT 96
[2024-01-15] MEDS ORDERED: LORazepam 0.5 MG TAB PO PRN (15:10)
[2024-01-15 16:00] VITALS: BP 123/79; PULSE 84; RESP 18; TEMP 97.3; O2SAT 97
[2024-01-15] MEDS: HYDROcodone/APAP 5/325 MG 1 TAB TAB PO PRN (17:44)
[2024-01-15 20:00] VITALS: BP 102/59; PULSE 89; RESP 20; TEMP 97.5; O2SAT 95
[2024-01-16 08:00] VITALS: BP 121/59; PULSE 83; RESP 18; TEMP 96.9; O2SAT 94; O2SAT 95
[2024-01-16] MEDS ORDERED: VANC125C12 PO (16:48)
[2024-01-16] MEDS ORDERED: KCL 20 MEQ IN 100 mL PREMIX 200 ML IV PRN (16:50)
[2024-01-16] MEDS ORDERED: MAG SULF 2000 MG/WATER PREMIX 50 ML IV PRN (16:50)
[2024-01-16] MEDS ORDERED: POTASSIUM CHLORIDE 10 MEQ TABER PO PRN (16:50)
[2024-01-16] MEDS: VANCOMYCIN HCL 25 MG/ML SOLN PO SCH (17:20)
[2024-01-16] MEDS ORDERED: VANCOMYCIN 1,000 MG VIAL PO SCH (18:00)
[2024-01-16 20:00] VITALS: BP 127/63; PULSE 81; PULSE 84; RESP 18; TEMP 98.3; O2SAT 94; O2SAT 95
[2024-01-17 06:41] LABS: BASOPHILS % (AUTO) 0.4 % (0.0-2.0); EOSINOPHILS # (AUTO) 0.3 K/uL (0-0.4); EOSINOPHILS % (AUTO) 5.8 % (0.0-4.0); HEMATOCRIT 36.2 % (36-48); HEMOGLOBIN 12.2 g/dL (12.0-16.0); LYMPHOCYTES # (AUTO) 1.8 K/uL (2.5-16.5); LYMPHOCYTES % (AUTO) 34.3 % (20.5-51.1); MEAN CORPUSCULAR HEMOGLOBIN 29 pg (27-31); MEAN CORPUSCULAR HGB CONC 34 g/dL (33-37); MEAN CORPUSCULAR VOLUME 86.7 fL (80-94); MONOCYTES # (AUTO) 0.5 K/uL (0.8-1.0); MONOCYTES % (AUTO) 8.6 % (1.7-9.3); NEUTROPHILS # (AUTO) 2.7 K/uL (1.8-7.7); NEUTROPHILS % (AUTO) 50.9 % (42.2-75.2); PLATELET COUNT (AUTO) 165 K/uL (140-450); RED BLOOD CELL COUNT(AUTO) 4.18 MIL/uL (4.20-5.40); RED CELL DISTRIBUTION WIDTH 14.4 % (11.6-13.7); WHITE BLOOD COUNT (AUTO) 5.3 K/uL (4.8-10.8)
[2024-01-17 07:37] LABS: ALANINE AMINOTRANSFERASE 22 U/L (12-78); ALBUMIN 2.7 g/dL (3.4-5.0); ALKALINE PHOSPHATASE 65 U/L (50-136); ANION GAP 11.5 (8-16); ASPARTATE AMINOTRANSFERASE 18 U/L (15-37); CALCIUM 8.5 mg/dL (8.5-10.1); CARBON DIOXIDE 26.3 mmol/L (21-32); CHLORIDE 107 mmol/L (98-107); CREATININE 0.6 mg/dL (0.6-1.3); GLUCOSE 91 mg/dL (74-106); MAGNESIUM 1.8 mg/dL (1.8-2.4); POTASSIUM 3.8 mmol/L (3.5-5.1); SODIUM SERUM 141 mmol/L (136-145); TOTAL BILIRUBIN 0.3 mg/dL (0.0-1.0); TOTAL PROTEIN, SERUM 5.9 g/dL (6.4-8.2); UREA NITROGEN, BLOOD 7 mg/dL (7-18)
[2024-01-17 08:00] VITALS: BP 114/64; PULSE 95; RESP 19; TEMP 98.8; O2SAT 99
[2024-01-17] MEDS: MAGNESIUM OXIDE 400 MG TAB PO PRN (09:01)
[2024-01-17 10:14] VITALS: BP 114/64; PULSE 95; RESP 19; TEMP 98.8
== END 2024-01-17 11:25 | disposition home or self-care (01) | DRG 372 ==
LOC: MED 16:49 → MTU 20:23 → OBSVTOIN 20:39 → MMU 20:40 → UNDOADMOB 20:40 → MMU 21:27 → MTU 21:27 → INTOOBSV 01-14 16:44 → OBSVTOIN 01-14 16:44
PROVIDERS: ADMIT Hospitalist; ATTEND Hospitalist
DX: A04.72 Enterocolitis due to Clostridium difficile, not specified as recurrent (principal); E44.0 Moderate protein-calorie malnutrition; E87.20 Acidosis, unspecified; Z85.038 Personal history of other malignant neoplasm of large intestine; Z79.899 Other long term (current) drug therapy; Z88.0 Allergy status to penicillin; Z68.26 Body mass index [BMI] 26.0-26.9, adult
CPT/HCPCS: 36415; 71045; 74250; 80048; 80053; 80076; 81001; 83036; 83690; 83735; 83880; 84484; 85025; 85610; 85730; 87070; 87081; 93005; 96361; 96374; 96375; 99285; J1650; J1885; J2270; J2405; Q0092